=== PATIENT | female | born 1980 | race Caucasian/White ===

== ENCOUNTER 2016-05-22 18:39 | Emergency (ER) | payer OTHER | END 2016-05-22 20:05 | disposition home or self-care (01) | LOC: FER 18:39 | DX: J10.1 Influenza due to other identified influenza virus with other respiratory manifestations (principal) | CPT/HCPCS: 71101; 87804; 87899; J1885 ==

== ENCOUNTER 2016-07-01 08:41 | Day surgery (SDCO) | payer OTHER ==
[~2016-07-01] VITALS: Ht 170.2 cm; Wt 95.2 kg
[2016-07-01 07:59] LABS: HCT 39.9 % (37.0-47.0); HGB 13.7 g/dl (12.5-16.0); MCH 28.9 pg (25.0-31.0); MCHC 34.3 g/dL (32.0-36.0); MCV 84.2 fL (78.0-100.0); MPV 10.2 fL (6.0-9.5); RBC 4.74 M/uL (4.20-5.40); RDW 13.1 % (11.5-14.0); WBC 4.5 K/uL (4.0-10.5)
[2016-07-02 06:02] LABS: HCT 30.6 % (37.0-47.0); HGB 10.4 g/dl (12.5-16.0); MCH 29.4 pg (25.0-31.0); MCV 86.4 fL (78.0-100.0); MPV 9.8 fL (6.0-9.5); RBC 3.54 M/uL (4.20-5.40); WBC 7.1 K/uL (4.0-10.5)
--- NOTE | 2016-07-02 10:59 | NUR ---
REVIEWED DISCHARGE INSTRUCTIONS, MEDICATIONS AND PRECAUTIONS WITH PT AND SPOUSE PT DENIES PAIN OR DISCOMFORT AT THIS TIME
== END 2016-07-02 11:11 | disposition home or self-care (01) ==
LOC: FAS 08:41 → FMS 12:07
PROVIDERS: ADMIT Obstetrics & Gynecology
DX: N72 Inflammatory disease of cervix uteri (principal); D27.9 Benign neoplasm of unspecified ovary; N83.8 Other noninflammatory disorders of ovary, fallopian tube and broad ligament; K42.9 Umbilical hernia without obstruction or gangrene; K21.9 Gastro-esophageal reflux disease without esophagitis; M19.90 Unspecified osteoarthritis, unspecified site; Z98.890 Other specified postprocedural states; Z80.9 Family history of malignant neoplasm, unspecified; Z81.8 Family history of other mental and behavioral disorders; Z79.899 Other long term (current) drug therapy
CPT/HCPCS: 36415; 84703; 86850; 86900; 86901; 88305; 88307; 94762; G0378; J0690; J1100; J1170; J1885; J2270; J2405; J2704; J2710; J3010

== ENCOUNTER 2016-09-20 17:12 | Emergency (ER) | payer OTHER | END 2016-09-20 19:30 | disposition home or self-care (01) | LOC: FER 17:12 | DX: T63.441A Toxic effect of venom of bees, accidental (unintentional), initial encounter (principal); Y92.009 Unspecified place in unspecified non-institutional (private) residence as the place of occurrence of the external cause | CPT/HCPCS: J1100 ==